=== PATIENT | female | born 1995 | race Two or more races ===

== ENCOUNTER 2016-12-10 13:39 | Emergency (ER) | payer MEDICAID ==
[2016-12-10 13:49] VITALS: BP 152/93
== END 2016-12-10 16:05 | disposition left against medical advice (07) ==
LOC: ED 13:39
DX: Z53.21 Procedure and treatment not carried out due to patient leaving prior to being seen by health care provider (principal)

== ENCOUNTER 2016-12-10 20:17 | Emergency (ER) | payer MEDICAID ==
[2016-12-10 21:24] VITALS: BP 139/86
== END 2016-12-10 21:24 | disposition home or self-care (01) ==
LOC: ED 20:17
DX: T81.31XA Disruption of external operation (surgical) wound, not elsewhere classified, initial encounter (principal); Z88.0 Allergy status to penicillin; Z88.1 Allergy status to other antibiotic agents